=== PATIENT | male | born 1975 | race African-American/Black ===

== ENCOUNTER 2017-06-07 21:01 | Emergency (ER) | payer OTHER ==
[2017-06-07 21:20] VITALS: TEMP 98.6; BMI 21.2
--- NOTE | 2017-06-07 21:44 | PDOC ---
History of Present Illness - General Chief Complaint: Substance Abuse Stated Complaint: SUBSTANCE ABUSE Time Seen by Provider: 06/07/17 21:27 - History of Present Illness Initial Comments: 06/07/17 42 year old male BIBA for wandering after smoking k2. found by police on the street. patient awake and alert to verbal stimuli. denies drug use, denies nausea vomiting. no trauma noted. Past History - Past Medical History Allergies/Adverse Reactions: Allergies Allergy/AdvReac Type Severity Reaction Status Date / Time No Known Allergies Allergy Verified 06/07/17 21:15 Home Medications: Ambulatory Orders NK [No Known Home Medication] 11/22/13 Suicide Attempt (Hx): No - Immunization History Immunization Up to Date: No - Psycho/Social/Smoking Cessation Hx Anxiety: No Suicidal Ideation: No Smoking History: Current every day smoker Have you smoked in the past 12 months: Yes Number of Cigarettes Smoked Daily: 20 Information on smoking cessation initiated: Yes 'Breaking Loose' booklet given: 11/22/13 Hx Alcohol Use: No Drug/Substance Use Hx: Yes Substance Use Type: None Review of Systems - Review of Systems Able to Perform ROS?: Yes Is the patient limited Mongolian proficient: No Constitutional: No: Symptoms Reported, See HPI, Chills, Diaphoresis, Fever, Loss of Appetite, Malaise, Night Sweats, Weakness, Weight Stable, Unintentional Wgt. Loss, Unexplained wgt Loss, Other Neurological: No: Symptoms reported, See HPI, Headache, Numbness, Paresthesia, Pre-Existing Deficit, Seizure, Tingling, Tremors, Weakness, Unsteady Gait, Ataxia, Dizziness, Other *Physical Exam - Vital Signs Last Vital Signs Temp Pulse Resp BP Pulse Ox 98.6 F 86 14 96/64 99 06/07/17 21:15 06/07/17 21:15 06/07/17 21:15 06/07/17 21:15 06/07/17 21:15 - Physical Exam General Appearance: Yes: Disheveled Respiratory/Chest: positive: Lungs Clear, Normal Breath Sounds Cardiovascular: positive: Regular Rhythm, Regular Rate Extremity: positive: Normal Capillary Refill, Normal Inspection, Normal Range of Motion Heart Score/ECG Review - ECG Intrepretation Rhythm: Regular Rhythm Comment:: 06/07/17 22:44 78: sinus rhythm with occasional PVCs Medical Decision Making - Medical Decision Making 06/08/17 01:46 A: drug abuse P; will await sobriety finger blood glucose EKG 06/08/17 04:37 patient now awake alert, walking. *DC/Admit/Observation/Transfer Diagnosis at time of Disposition: Intoxication by drug Qualifiers: Complication of substance-induced condition: uncomplicated Qualified Code(s): F19.920 - Other psychoactive substance use, unspecified with intoxication, uncomplicated - Discharge Dispostion Disposition: HOME - Patient Instructions Printed Discharge Instructions: Drug Abuse and Drug Addiction
--- NOTE | 2017-06-07 22:52 | PDOC ---
*Physical Exam - Vital Signs Last Vital Signs Temp Pulse Resp BP Pulse Ox 98.6 F 86 14 96/64 99 06/07/17 21:15 06/07/17 21:15 06/07/17 21:15 06/07/17 21:15 06/07/17 21:15 ED Treatment Course - ADDITIONAL ORDERS Additional order review: Laboratory Results 06/07/17 21:48 POC Glucometer [id number] 06/07/17 21:48 POC Glucometer [id number] Medical Decision Making - Medical Decision Making 06/07/17 22:52 agree with care from JASON Lezama *DC/Admit/Observation/Transfer Diagnosis at time of Disposition: Intoxication by drug - Discharge Dispostion Disposition: HOME - Patient Instructions Printed Discharge Instructions: Drug Abuse and Drug Addiction
[2017-06-08 04:45] LABS: URINE MARIJUANA THC NEGATIVE ng/ml (CUTOFF=50)
[2017-06-08 06:34] VITALS: BP 115/73; PULSE 80
--- NOTE | 2017-06-08 10:44 | EKG ---
Test Reason : Blood Pressure : / mmHG Vent. Rate : 078 BPM Atrial Rate : 078 BPM P-R Int : 140 ms QRS Dur : 086 ms QT Int : 358 ms P-R-T Axes : 060 053 038 degrees QTc Int : 408 ms SINUS RHYTHM WITH OCCASIONAL PREMATURE VENTRICULAR COMPLEXES MODERATE VOLTAGE CRITERIA FOR LVH, MAY BE NORMAL VARIANT BORDERLINE ECG WHEN COMPARED WITH ECG OF 29-JUN-2016 11:34, PREMATURE VENTRICULAR COMPLEXES ARE NOW PRESENT VENT. RATE HAS INCREASED BY 26 BPM Confirmed by RICHELLE ORNELAS, MARISA ([id number]) on 06/08/2017 10:44:03 AM Referred By: Confirmed By:MARISA PEOPLES MD
== END 2017-06-08 06:33 | disposition home or self-care (01) ==
LOC: JER 21:01
DX: F19.220 Other psychoactive substance dependence with intoxication, uncomplicated (principal); F17.210 Nicotine dependence, cigarettes, uncomplicated
CPT/HCPCS: 36415; 80307; 93005; 93010; 99282-25